=== PATIENT | male | born 1960 | race Caucasian/White ===

== ENCOUNTER 2018-08-11 10:31 | Emergency (ER) | payer OTHER ==
[~2018-08-11] VITALS: Ht 180.3 cm; Wt 109.3 kg
[~2018-08-11 10:31] MED LIST: ASPIRIN325 MG PO; CRESTOR10 MG
[2018-08-11] MEDS ORDERED: ONDANSETRON HCL INJ 2 MG/ML VIAL IV STA (10:53)
[2018-08-11] MEDS ORDERED: MORPHINE SULFATE INJ 10 MG/ML IV ONE (11:00)
[2018-08-11] MEDS ORDERED: SODIUM CHLORIDE 0.9% 1000ML 1,000 ML IV SCH (11:30)
--- NOTE | 2018-08-11 12:00 | NUR ---
Pt taken to Radiology for CT and X-Rays, VSS, No distress, AA&Ox3 Addendum: 08/11/18 at 1356 by MARIE Pt to Radiology for CT and X-Ray. Pt is in no distress, VSS, spinal precautions observed.
--- NOTE | 2018-08-11 12:14 | Diagnostic Imaging Report ---
CT MAX/FAC.PARANASAL SINUS WO HISTORY: Fall COMPARISON: None. TECHNIQUE: Axial CT images through the face were obtained without contrast. Coronal/sagittal reformations were created. One or more of the following dose reduction techniques were used: Automated exposure control, adjustment of the mA and/or kV according to patient size, and/or utilization of iterative reconstruction technique. Streak artifacts obscure some details. DISCUSSION: Mildly displaced bilateral nasal bone fractures are associated with local soft tissue edema. Anterior superior nasal septum fracture is also mildly displaced. No additional acute fracture is seen. There are mild degenerative changes in the upper cervical spine. The C2 and C3 vertebral bodies are fused. There are mild degenerative changes in the left temporomandibular joint. The orbits are intact. Intraorbital contents are grossly unremarkable. Moderate right maxillary sinus mucosal thickening is present. Mild bilateral ethmoid air cell mucosal thickening is also present. Bilateral palatine tonsilloliths are present. Otherwise, the visualized soft tissues and intracranial compartment are grossly unremarkable. IMPRESSION: 1. Mildly displaced bilateral nasal bone fractures. 2. Mildly displaced fracture of the anterior superior nasal septum. 3. No other acute osseous abnormalities. Signed by: Dr. Vitaly Barrientos M.D. on 08/11/2018 12:11 PM
--- NOTE | 2018-08-11 12:25 | Diagnostic Imaging Report ---
CT C-SPINE W/O - HOPD, CT THORACIS SPINE WO-HOPD, CT LUMBAR SPINE WITHOUT-HOPD HISTORY: Fall COMPARISON: None. TECHNIQUE: Axial CT images of the cervical, thoracic, and lumbar spine were obtained without contrast. Coronal/sagittal reformatted images were created. One or more of the following dose reduction techniques were used: Automated exposure control, adjustment of the mA and/or kV according to patient size, and/or utilization of iterative reconstruction technique. FINDINGS: Cervical lordosis is straightened. Thoracic kyphosis and lumbar lordosis are preserved. There is no significant scoliosis or subluxation. No fracture, compression deformity, or destructive osseous lesions are seen. No gross spinal canal mass is seen. The paravertebral and paraspinal soft tissues are unremarkable. Mild lower cervical spondylosis is most prominent at C6-C7. The C2 and C3 vertebral bodies are fused. Mild atlantoaxial arthrosis is present as well. Mild multilevel thoracic and lumbar spondylotic changes are also present. Mild bilateral facet arthrosis is seen at L4-L5 and L5-S1. There are also mild degenerative changes in the bilateral sacroiliac joints. Mild dependent atelectasis is seen in the lungs. IMPRESSION: 1. No acute osseous abnormalities. 2. Mild multilevel spondylotic changes. Signed by: Dr. Vitaly Barrientos M.D. on 08/11/2018 12:22 PM
--- NOTE | 2018-08-11 13:22 | Diagnostic Imaging Report ---
Exam: Right knee radiographs-3 views Comparison: None. Findings: Status post right total knee arthroplasty and patellar resurfacing with intact hardware. No evidence of periprosthetic lucency. No evidence of acute fracture, malalignment, or joint effusion. Impression: Status post right total knee arthroplasty with intact hardware and anatomic alignment. Signed by: Dr. Tiarra Banegas MD on 08/11/2018 1:19 PM
--- NOTE | 2018-08-11 13:33 | Diagnostic Imaging Report ---
EXAM: CT Abdomen and Pelvis WITH contrast INDICATION: Trauma. COMPARISON: None. TECHNIQUE: mAbdomen and pelvis were scanned utilizing a multidetector helical scanner from the lung base to the pubic symphysis after administration of IV contrast. Coronal and sagittal reformations were obtained. Routine protocol was performed. Scan was performed when during portal venous phase. IV CONTRAST: 100 mL of Isovue 370 ORAL CONTRAST: Water COMPLICATIONS: None RADIATION DOSE: Total DLP: 800 mGy*cm CTDIvol has been reviewed. It is below the limits set by the Radiation Protocol Committee (RPC). FINDINGS: LINES and TUBES: None. LOWER THORAX: Unremarkable HEPATOBILIARY: No evidence of focal lesion. No biliary ductal dilation. GALLBLADDER: No radio-opaque stones or sludge. No wall thickening. SPLEEN: No splenomegaly. PANCREAS: No focal masses or ductal dilatation. ADRENALS: No adrenal nodules KIDNEYS/URETERS: Kidneys enhance symmetrically. No evidence of hydronephrosis, solid mass, or stone. Subcentimeter left renal hypodensities too small to characterize, but likely represents a cyst. GI TRACT: No evidence of wall thickening or distension. PELVIC ORGANS/BLADDER: Unremarkable. LYMPH NODES: No lymphadenopathy. VESSELS: Unremarkable. PERITONEUM / RETROPERITONEUM: No free air or fluid. BONES AND SOFT TISSUES: No acute osseous findings. CONCLUSION: No acute traumatic abnormality in the abdomen or pelvis. Signed by: Dr. Tiarra Banegas MD on 08/11/2018 1:30 PM
--- NOTE | 2018-08-11 14:50 | Diagnostic Imaging Report ---
Exam: Right Hand Series- 2 views, ring finger radiographs-3 views Comparison: <None.> Findings: 3 views of the hand. There is normal bone mineralization. No evidence of fracture or malalignment. The joint spaces are preserved. Dedicated radiographs of the ring finger demonstrate no evidence of fracture. Mild soft tissue edema in the proximal ring finger. Impression: No acute osseous abnormality in the right hand or ring finger. Mild soft tissue edema in the proximal ring finger. Signed by: Dr. Tiarra Banegas MD on 08/11/2018 2:47 PM
[2018-08-11 16:22] VITALS: BP 144/93
== END 2018-08-11 16:28 | disposition home or self-care (01) ==
LOC: FSED 10:31
DX: S00.81XA Abrasion of other part of head, initial encounter (principal); S02.2XXA Fracture of nasal bones, initial encounter for closed fracture; M54.2 Cervicalgia; S83.411A Sprain of medial collateral ligament of right knee, initial encounter; S83.421A Sprain of lateral collateral ligament of right knee, initial encounter; W18.09XA Striking against other object with subsequent fall, initial encounter; Y99.0 Civilian activity done for income or pay
CPT/HCPCS: 70486; 72125; 72128; 72131; 73120; 73140; 73562; 74177; 80053; 85025; 99284; J2270; J2405

== ENCOUNTER 2020-06-28 20:40 | Emergency (ER) | payer OTHER ==
[~2020-06-28] VITALS: Ht 180.3 cm; Wt 95.3 kg
[2020-06-28] MEDS ORDERED: TETANUS/DIPHTHERIA TOX ADULT 0.5 ML SYR ONE (20:57)
--- OUTSIDE RECORDS SUMMARY | 2020-06-28 20:57 | XMS REPORT | Continuity of Care Document ---
Author Author [facility] t Organization [facility] Address [address] [place] [address] Phone Unavailable Care Team Providers Care Computer Systems Engineer Name Role Phone NO, PCP PCP Unavailable Irvin NÚÑEZ Attphys Unavailable Payers Payer Name Policy Type Policy Number Effective Date Expiration Date [employer] [facility] [id number] [facility] [place] [id number] [facility] [id number] [facility] Problems This patient has no known problems. Allergies, Adverse Reactions, Alerts Allergy Name Allergy Type Status Severity Reaction(s) Onset Date Inacti ve Date Treating Clinician Comments Source No Known Allergies DA Active U 2018-10-25 00:00:00 [facility] Medications Ordered Medication Name Filled Medication Name Start Date Stop Da te Current Medication? Ordering Clinician Indication Dosage Frequency Signature (SIG) Comments Components Source Aspirin 325 Mg Tablet Aspirin 325 Mg Tablet 2016-09-17 00:00:00 Yes Wilber Segal 325 Twice A Day [facility] Rosuvastatin Calcium (Crestor) 10 Mg Tab Rosuvastatin Calcium (Crestor) 10 Mg Tab Yes Daily [facility] Procedures This patient has no known procedures. Encounters Start Date/Time End Date/Time Encounter Type Admission Type Attendi [facility] Care Department Encounter ID Source 2018-08-11 10:31:00 2018-08-11 16:28:00 Departed Emergency Room 1 USMAN NÚÑEZ [facility] [id number] [facility] Results Test Description Test Time Test Comments Results Result Comments Source URINALYSIS COMPLETE 2018-10-25 18:52:00 Test Item UA COLOR (test code = COLU) STRAW YELLOW UA APPEARANCE (test code = APPU) CLEAR CLEAR UA GLUCOSE DIPSTICK (test code = DGLUU) NEGATIVE mg/dL NEGATIVE UA BILIRUBIN DIPSTICK (test code = BILU) NEGATIVE mg/dL NEGATIVE UA KETONE DIPSTICK (test code = KETU) Negative mg/dL NEGATIVE UA SPECIFIC GRAVITY (test code = SGU) 1.048 1.001-1.035 UA BLOOD DIPSTICK (test code = EDUIN) Negative NEGATIVE UA PH DIPSTICK (test code = STANISLAV) 6.0 5.0-8.0 UA PROTEIN DIPSTICK (test code = PROU) Negative mg/dL NEGATIVE UA UROBILINIOGEN DIPSTICK (test code = URO) 0.2E.U./dL mg/dL 0.0-0. 2 UA NITRITE DIPSTICK (test code = JAZZ) NEGATIVE NEGATIVE UA LEUKOCYTE ESTERASE W REFLEX (test code = LEUUR) NEGATIVE NEG ATIVE UA WBC (test code = WBCU) 0-5 #/HPF 0-5 UA RBC (test code = RBCU) 0-2 #/HPF 0-5 UA EPITHELIAL CELLS (test code = EPIU) FEW per HPF FEW UA BACTERIA (test code = BACU) NONE SEEN #/HPF NONE UA MUCUS (test code = MUCU) FEW #/LPF FEW Urine Source? Clean CatchURINALYSIS [id number] 18:49:00* Test Item Value Reference Range Interpretation Comments UA COLOR (test code = COLU) STRAW YELLOW UA APPEARANCE (test code = APPU) CLEAR CLEAR UA GLUCOSE DIPSTICK (test code = DGLUU) NEGATIVE mg/dL NEGATIVE UA BILIRUBIN DIPSTICK (test code = BILU) NEGATIVE mg/dL NEGATIVE UA KETONE DIPSTICK (test code = KETU) Negative mg/dL NEGATIVE UA SPECIFIC GRAVITY (test code = SGU) 1.048 1.001-1.035 UA BLOOD DIPSTICK (test code = EDUIN) Negative NEGATIVE UA PH DIPSTICK (test code = STANISLAV) 6.0 5.0-8.0 UA PROTEIN DIPSTICK (test code = PROU) Negative mg/dL NEGATIVE UA UROBILINIOGEN DIPSTICK (test code = URO) 0.2E.U./dL mg/dL 0.0-0. 2 UA NITRITE DIPSTICK (test code = JAZZ) NEGATIVE NEGATIVE UA LEUKOCYTE ESTERASE W REFLEX (test code = LEUUR) NEGATIVE NEG ATIVE UA WBC (test code = WBCU) per HPF 0-5 Urine Source? Clean CatchBASIC METABOLIC [id number] 18:02:00* Test Item Value Reference Range Interpretation Comments SODIUM (test code = NA) 136 mmol/L 136-145 N POTASSIUM (test code = K) 3.6 mmol/L 3.5-5.1 N CHLORIDE (test code = CL) 104.0 mmol/L 98-107 N CARBON DIOXIDE (test code = CO2) 20.0 mmol/L 21-32 L ANION GAP (test code = GAP) 15.6 10-20 N GLUCOSE (test code = GLU) 89 mg/dL 74-106 N BLOOD UREA NITROGEN (test code = BUN) 17 mg/dL 7-18 N GLOMERULAR FILTRATION RATE (test code = GFR) > 60 mL/min >=60 Estimated GFR by using Modified MDRD formula.Chronic kidney disease is defined as either kidney damageor GFR <60 mL/min/1.73 m2 for >3 months. CREATININE (test code = CREAT) 0.80 mg/dL 0.7-1.3 N BUN/CREATININE RATIO (test code = BUN/CREA) 20.2 10-20 H CALCIUM (test code = CA) 7.9 mg/dL 8.5-10.1 L HEPATIC FUNCTION [id number] 18:02:00* Test Item Value Reference Range Interpretation Comments TOTAL PROTEIN (test code = PROT) 6.5 gram/dL 6.4-8.2 N ALBUMIN (test code = ALB) 3.6 g/dL 3.4-5.0 N GLOBULIN (test code = GLOB) 2.9 gram/dL 2.7-4.2 N ALBUMIN/GLOBULIN RATIO (test code = A/G) 1.2 0.75-1.50 N BILIRUBIN TOTAL (test code = BILT) 0.40 mg/dL 0.0-1.0 N BILIRUBIN DIRECT (test code = BILD) 0.10 mg/dL 0.0-0.20 N SGOT/AST (test code = AST) 21 IUnit/L 15-37 N SGPT/ALT (test code = ALT) 30 IUnit/L 12-78 N ALKALINE PHOSPHATASE TOTAL (test code = ALKP) 40 IUnit/L 45-117 L Note change in reference range due to change in reagent. [id number] 18:02:00* Test Item Value Reference Range Interpretation Comments TROPONIN-I (test code = TROPI) <0.015 ng/mL 0-0.045 N BASIC METABOLIC [id number] 17:51:00* Test Item Value Reference Range Interpretation Comments SODIUM (test code = NA) 136 mmol/L 136-145 N POTASSIUM (test code = K) 3.6 mmol/L 3.5-5.1 N CHLORIDE (test code = CL) 104.0 mmol/L 98-107 N CARBON DIOXIDE (test code = CO2) mmol/L 21-32 ANION GAP (test code = GAP) 10-20 GLUCOSE (test code = GLU) mg/dL 74-106 BLOOD UREA NITROGEN (test code = BUN) mg/dL 7-18 GLOMERULAR FILTRATION RATE (test code = GFR) mL/min >=60 CREATININE (test code = CREAT) mg/dL 0.7-1.3 BUN/CREATININE RATIO (test code = BUN/CREA) 10-20 CALCIUM (test code = CA) mg/dL 8.5-10.1 HEPATIC FUNCTION [id number] 17:51:00* Test Item Value Reference Range Interpretation Comments TOTAL PROTEIN (test code = PROT) gram/dL 6.4-8.2 ALBUMIN (test code = ALB) g/dL 3.4-5.0 GLOBULIN (test code = GLOB) gram/dL 2.7-4.2 ALBUMIN/GLOBULIN RATIO (test code = A/G) 0.75-1.50 BILIRUBIN TOTAL (test code = BILT) mg/dL 0.0-1.0 BILIRUBIN DIRECT (test code = BILD) mg/dL 0.0-0.20 SGOT/AST (test code = AST) IUnit/L 15-37 SGPT/ALT (test code = ALT) IUnit/L 12-78 ALKALINE PHOSPHATASE TOTAL (test code = ALKP) IUnit/L 45-117 [id number] 17:51:00* Test Item Value Reference Range Interpretation Comments TROPONIN-I (test code = TROPI) ng/mL 0-0.045 CBC W/O [id number] 17:18:00* Test Item Value Reference Range Interpretation Comments WHITE BLOOD CELL (test code = WBC) 5.7 K/mm3 4.5-12.5 N RED BLOOD CELL (test code = RBC) 4.63 mill/mm3 4.0-5.8 N HEMOGLOBIN (test code = HGB) 12.8 gram/dL 13.0-17.5 L HEMATOCRIT (test code = HCT) 39.7 % 42.0-52.0 L MEAN CELL VOLUME (test code = MCV) 85.7 fL 80-98 N MEAN CELL HGB (test code = MCH) 27.6 picogram 27.0-33.0 N MEAN CELL HGB CONCETRATION (test code = MCHC) 32.2 gram/dL 33.0-36. 0 L RED CELL DISTRIBUTION WIDTH (test code = RDW) 13.3 % 11.6-16. 2 N PLATELET COUNT (test code = PLT) 186 K/mm3 150-450 N MEAN PLATELET VOLUME (test code = MPV) 10.4 fL 6.7-11.0 N - CT ABD PELVIS [id number] 17:07:00 Name: TYSON HA [facility] : 1960 Age/S: 58 / M [address] [facility] Unit #: [id number] Loc: [place] [address] Phys: Catracho Mireles DO Acct: [id number] Dis Date: Status: REG ER PHONE #: [phone] Exam Date: 10/25/2018 1631 FAX #: [phone] Reason: trauma EXAMS: CPT CODE: [id number] CT ABD PELVIS W/CONT [id number] REASON FOR EXAM: trauma EXAM ORDER DATE: 10/25/2018 4:07 PM Ordering Jose Francisco: Catracho Mireles DO PROCEDURE: - CT ABD PELVIS W/CONT COMPARISON: FINDINGS: CT images of the abdomen and pelvis were obtained with IV and without oral contrast at 5mm. Dose modulation, iterative reconstruction, and/or weight based adjustment of the MA/KV was utilized to reduce the radiation dose to as low as reasonably achievable. Intravenous contrast: 100c of Omnipaque 370. The liver, spleen, pancreas are grossly within normal limits. The gallbladder is unremarkable by CT. The kidneys are within normal limits. The urinary bladder is unremarkable. The colon, small bowel, and stomach are within normal limits without evidence of obstruction. The appendix is unremarkable. No evidence of free air or free fluid. The uterus is unremarkable. IMPRESSION: No acute findings in the abdomen at 1707 Reported and signed by: Eamon Mendoza M.D. CC: Catracho Mireles DO Technologist:Jena May RT(R),CT CTDI: DLP: Trnscb Date/Time: 10/25/2018 (1707) Perfecto.VTL Orig Print D/T: S: 10/25/2018 (1700) CTDI: DLP: PAGE 1 Signed Report - CT CHEST W/CONTRAST 2018-10-25 17:05:00 Name: TYSON HA [facility] : 1960 Age/S: 58 / M [address] [facility] Unit #: [id number] Loc: [place] [address] Phys: Catracho Mireles DO Acct: [id number] Dis Date: Status: REG ER PHONE #: [phone] Exam Date: 10/25/2018 1631 FAX #: [phone] Reason: trauma EXAMS: CPT CODE: [id number] CT CHEST W/CONTRAST 83681 REASON FOR EXAM: trauma EXAM ORDER DATE: 10/25/2018 4:07 PM Ordering Jose Francisco: Catracho Mireles DO PROCEDURE: - CT CHEST W/CONTRAST FINDINGS: CT images of the chest were obtained with IV contrast. Reconstructed sagittal and coronal images of the chest were provided for interpretation. Dose modulation, iterative reconstruction, and/or weight based adjustment of the MA/KV was utilized to reduce the radiation dose to as low as reasonably achievable. Intravenous contrast: 100c of Omnipaque 370. The heart size is within normal limits. No evidence of pericardial effusion The thoracic aorta is unremarkable. No evidence of dissection or aneurysmal dilatation. No filling defect seen within the main or lobar pulmonary arteries to suggest pulmonary embolus. No evidence of mediastinal or hilar adenopathy. The lungs are clear. No evidence of pleural effusion IMPRESSION: No acute findings in the chest. at 1705 Reported and signed by: Eamon Mendoza M.D. CC: Catracho Mireles DO Technologist:Jena May RT(R),CT CTDI: DLP: Trnscb Date/Time: 10/25/2018 (2458) Perfecto.VTL Orig Print D/T: S: 10/25/2018 (3887) CTDI: DLP: PAGE 1 Signed Report - XR CHEST 1 [id number] 16:30:00 FAX: Catracho Mireles DO [place]: B St: REG Name: TYSON OLSON [facility] : [birth year] Age/S: 58/M [address] [facility] Unit #: [id number] Loc: [place] [address] Phys: Catracho Mireles DO Acct: [id number] Dis Date: Status: REG ER PHONE #: [phone] Exam Date: 10/25/2018 1614 FAX #: [phone] Reason: CHEST PAIN EXAMS: CPT CODE: [id number] XR CHEST 1 V [id number] REASON FOR EXAM: CHEST PAIN EXAM ORDER DATE: 10/25/2018 4:07 PM Ordering Jose Francisco: Catracho Mireles DO PROCEDURE: - XR CHEST 1 V COMPARISON: FINDINGS: Portable AP frontal view of the chest obtained at 4:16 PM shows clear lungs without evidence of consolidation. There is no evidence of effusion. The heart size is within normal limits. Pulmonary vasculatures are unremarkable. IMPRESSION: No active disease. at 1630 Reported and signed by: Eamon Mendoza M.D. CC: Catracho Mireles DO Technologist: Gaurav SOTO(R) Trnscrd Date/Time/By: 10/25/2018 (0460) : By: GilbertoL Orig Print D/T: S: 10/25/2018 (5873) PAGE 1 Signed Report FINGER RT - [id number] 14:43:00 [place] [address] Patient Name: TYSON HA MR #: [id number] : 1960 Age/Sex: 58/M Req #: [id number] Adm Physician: Ordered by: USMAN NÚÑEZ MD Report #: [id number] Location: [facility] Room/Bed: Procedure: [id number] HOPD/FINGER RT - HOPD Exam Date: 08/11/18 Exam Time: 1444 REPORT STATUS: Signed E xam: Right Hand Series- 2 views, ring finger radiographs-3 views Comparis on: <None.> Findings: 3 views of the hand. There is normal bone mineralization. No evidence of fracture or malalignment. The joint spaces are preserved. Dedicated radiographs of the ring finger demonstrate no evidence of fracture. Mild soft tissue edema in the proximal ring finger. Impression: No acute osseous abnormality in the right hand or ring finger. Mild soft tissue edema in the proximal ring finger. Signed by: Dr. Umair Roberson MD on 08/11/2018 2:47 PM Dictated By: UMAIR ROBERSON MD 46 Transcribed By: DOMINIQUE on 08/11/181446 COPY TO: USMAN NÚÑEZ MD HAND 2 VIEW RT - HOPD 2018-08-11 14:43:00 [place] [address] Patient Name: TYSON HA MR #: [id number] : 1960 Age/Sex: 58/M Req #: [id number] Adm Physician: Ordered by: USMAN NÚÑEZ MD Report #: [id number] Location: [facility] Room/Bed: Procedure: [id number] HOPD/HAND 2 VIEW RT - HOPD Exam Date: 08/11/18 Exam Time: 1445 REPORT STATUS: Signed Exam: Right Hand Series- 2 views, ring finger radiographs-3 views Com parison: <None.> Findings: 3 views of the hand. There is normal bone mineralization. No evidence of fracture or malalignment. The joint spaces are preserved. Dedicated radiographs of the ring finger demonstrate no evidence of fracture. Mild soft tissue edema in the proximal ring finger. Impression: No acute osseous abnormality in the right hand or ring finger. Mild soft tissue edema in the proximal ring finger. Signed by: Dr. Umair Roberson MD on 08/11/2018 2:47 PM Dictated By: UMAIR ROBERSON MD 46 Transcribed By: DOMINIQUE on 08/11/181446 COPY TO: USMAN NÚÑEZ MD CT ABD/PEL WITH CONTRAST-HOPD 2018-08-11 13:25:00 [place] [address] Patient Name: TYSON HA MR #: [id number] : 1960 Age/Sex: 58/M Req #: [id number] Adm Physician: Ordered by: USMAN NÚÑEZ MD Report #: [id number] Location: [facility] Room/Bed: Procedure: [id number] HOPD/CT ABD/PEL WITH CONTRAST-HOPD Exam Date: 08/11/18 Exam Time: 1225 REPORT STATUS: S igned EXAM: CT Abdomen and Pelvis WITH contrast INDICATION: Trauma. COMPARISON: None. TECHNIQUE: mAbdomen and pelvis were scanned utilizing a m [employer] helical scanner from the lung base to the pubic symphysis after a dministration of IV contrast. Coronal and sagittal reformations were obtained. Routine protocol was performed. Scan was performed when during portal venous phase. IV CONTRAST: 100 mL of Isovue 370 ORAL CONTRAST: Water COMPLICATIONS: None RADIATION DOSE: Total DLP: 800 mGy*cm CTDIvol has been reviewed. It is below the limits set by the [facility] Protocol Committee (RPC). FINDINGS: LINES and TUBES: None. L OWER THORAX: Unremarkable HEPATOBILIARY: No evidence of focal lesion. No b iliary ductal dilation. GALLBLADDER: No radio-opaque stones or sludge. No wall thickening. SPLEEN: No splenomegaly. PANCREAS: No focal masses or ductal dilatation. ADRENALS: No adrenal nodules KIDNEYS/URETERS: Kidneys enhance symmetrically. No evidence of hydronephrosis, solid mass, or stone. Subcentimeter left renal hypodensities too small to characterize, but l ikely represents a cyst. GI TRACT: No evidence of wall thickening or disten arnol. PELVIC ORGANS/BLADDER: Unremarkable. LYMPH NODES: No lymphadeno rocio. VESSELS: Unremarkable. PERITONEUM / RETROPERITONEUM: No free ai r or fluid. BONES AND SOFT TISSUES: No acute osseous findings. CONCLUS ION: No acute traumatic abnormality in the abdomen or pelvis. Signed by: Dr. Umair Roberson MD on 08/11/2018 1:30 PM Dictated By: UMAIR ROBERSON MD Electr onically Signed By: UMAIR ROBERSON MD on 08/11/181329 Transcribed By: DOMINIQUE on 08/11/181329 COPY TO: USMAN NÚÑEZ MD KNEE 3VW RT - HOPD 2018-08-11 13:17:00 [place] [address] Patient Name: TYSON HA MR #: [id number] : 1960 Age/Sex: 58/M Req #: [id number] Adm Physician: Ordered by: USMAN NÚÑEZ MD Report #: [id number] Location: [facility] Room/Bed: Procedure: [id number] HOPD/KNEE 3VW RT - HOPD Exam Date: 08/11/18 Exam Pardeep e: 1235 REPORT STATUS: Signed Exam: Right knee radiographs-3 views Comparison: None. Findings: Status post right total knee arthroplasty and patellar resurfacing with intact hardware. No evidence of periprosthetic lucency. No evidence of acute fracture, malalignment, or joint effusion. Impression: Status post right total knee arthroplasty with intact hardware and anatomic alignment. Signed by: Dr. Umair Roberson MD on 08/11/2018 1:19 PM Dictated By: UMAIR ROBERSON MD Elect ronically Signed By: UMAIR ROBERSON MD on 08/11/181318 Transcribed By: DOMINIQUE on 08/11/181318 COPY TO: USMAN NÚÑEZ MD CT LUMBAR SPINE [id number] 12:11:00 [place] [id number] [place] [address] Patient Name: TYSON HA MR #: [id number] : 1960 Age/Sex: 58/M Req #: [id number] Adm Physician: Ordered by: USMAN NÚÑEZ MD Report #: [id number] Location: ED Room/Bed: Procedure: [id number] HOPD/CT LUMBAR SPINE WITHOUT-HOPD Exam Date: 08/11/18 Exam Time: 1158 REPORT STATUS: Si gned CT C-SPINE W/O - HOPD, CT THORACIS SPINE WO-HOPD, CT LUMBAR SPINE WITHOU T-HOPD HISTORY: Fall COMPARISON: None. TECHNIQUE: Axial CT images of the cervical, thoracic, and lumbar spine were obtained without contr ast. Coronal/sagittal reformatted images were created. One or more of the foll owing dose reduction techniques were used: Automated exposure control, adjustm ent of the mA and/or kV according to patient size, and/or utilization of itera tive reconstruction technique. FINDINGS: Cervical lordosis is str aightened. Thoracic kyphosis and lumbar lordosis are preserved. There is no significant scoliosis or subluxation. No fracture, compression deformity, or destructive osseous lesions are seen. No gross spinal canal mass is seen. The paravertebral and paraspinal soft tissues are unremarkable. Mild lower cervical spondylosis is most prominent at C6-C7. The C2 and C3 vertebral bod ies are fused. Mild atlantoaxial arthrosis is present as well. Mild multile karrie thoracic and lumbar spondylotic changes are also present. Mild bilateral f acet arthrosis is seen at L4-L5 and L5-S1. There are also mild degenerative ch anges in the bilateral sacroiliac joints. Mild dependent atelectasis is see n in the lungs. IMPRESSION: 1. No acute osseous abnormalities. 2. Mild multilevel spondylotic changes. Signed by: Dr. iVtaly Barrientos M.D. on 08/11/2018 12:22 PM Dictated By: VITALY BARRIENTOS MD Electronically Sig santiago By: VITALY BARRIENTOS MD on 08/11/18 1222 Transcribed By: DOMINIQUE on 9 1222 COPY TO: USMAN NÚÑEZ MD CT THORACIS SPINE WO-HOPD 2018-08-11 12:11:00 [place] [address] Patient Name: TYSON HA MR #: [id number] : 1960 Age/Sex: 58/M Req #: [id number] Adm Physician: Ordered by: USMAN NÚÑEZ MD Report #: [id number] Location: [facility] Room/Bed: Procedure: [id number] HOPD/CT THORACIS SPINE WO-HOPD Exam Date: 08/11/18 E xam Time: 1158 REPORT STATUS: Bisi d CT C-SPINE W/O - HOPD, CT THORACIS SPINE WO-HOPD, CT LUMBAR SPINE WITHOUT-H OPD HISTORY: Fall COMPARISON: None. TECHNIQUE: Axial CT catia ges of the cervical, thoracic, and lumbar spine were obtained without contrast . Coronal/sagittal reformatted images were created. One or more of the followi ng dose reduction techniques were used: Automated exposure control, adjustment of the mA and/or kV according to patient size, and/or utilization of iterative reconstruction technique. FINDINGS: Cervical lordosis is straig htened. Thoracic kyphosis and lumbar lordosis are preserved. There is no si gnificant scoliosis or subluxation. No fracture, compression deformity, or de structive osseous lesions are seen. No gross spinal canal mass is seen. Th e paravertebral and paraspinal soft tissues are unremarkable. Mild lower c ervical spondylosis is most prominent at C6-C7. The C2 and C3 vertebral bodies are fused. Mild atlantoaxial arthrosis is present as well. Mild multilevel thoracic and lumbar spondylotic changes are also present. Mild bilateral facet arthrosis is seen at L4-L5 and L5-S1. There are also mild degenerative changes in the bilateral sacroiliac joints. Mild dependent atelectasis is seen in the lungs. IMPRESSION: 1. No acute osseous abnormalities. 2. M ild multilevel spondylotic changes. Signed by: Dr. Vitaly Barrientos M.D. on 08/11/2018 12:22 PM Dictated By: VITALY BARRIENTOS MD 1222 Transcribed By: DOMINIQUE on 08/11/18 1 222 COPY TO: USMAN NÚÑEZ MD CT C-SPINE W/O - [id number] 12:11:00 [place] [address] Patient Name: TYSON HA MR #: [id number] : 1960 Age/Sex: 58/M Req #: [id number] Adm Physician: Ordered by: USMAN NÚÑEZ MD Report #: [id number] Location: [facility] Room/Bed: Procedure: [id number] HOPD/CT C-SPINE W/O - HOPD Exam Date: 08/11/18 Exam Time: 1123 REPORT STATUS: Signed CT C-SPINE W/O - HOPD, CT THORACIS SPINE WO-HOPD, CT LUMBAR SPINE WITHOUT-HOPD HISTORY: Fall COMPARISON: None. TECHNIQUE: Axial CT images of the cervical, thoracic, and lumbar spine were obtained without contrast. Co keith/sagittal reformatted images were created. One or more of the following d ose reduction techniques were used: Automated exposure control, adjustment of the mA and/or kV according to patient size, and/or utilization of iterative re construction technique. FINDINGS: Cervical lordosis is straighten ed. Thoracic kyphosis and lumbar lordosis are preserved. There is no signif icant scoliosis or subluxation. No fracture, compression deformity, or destru ctive osseous lesions are seen. No gross spinal canal mass is seen. The pa ravertebral and paraspinal soft tissues are unremarkable. Mild lower cervi jenny spondylosis is most prominent at C6-C7. The C2 and C3 vertebral bodies are fused. Mild atlantoaxial arthrosis is present as well. Mild multilevel tho racic and lumbar spondylotic changes are also present. Mild bilateral facet ar throsis is seen at L4-L5 and L5-S1. There are also mild degenerative changes i n the bilateral sacroiliac joints. Mild dependent atelectasis is seen in th e lungs. IMPRESSION: 1. No acute osseous abnormalities. 2. Mild multilevel spondylotic changes. Signed by: Dr. Vitaly Barrientos M.D. on 2018 12:22 PM Dictated By: VITALY BARRIENTOS MD 1222 Transcribed By: DOMINIQUE on 08/11/18 1222 COPY TO: USMAN NÚÑEZ MD CT MAX/FAC.PARANASAL SINUS WO 2018-08-11 12:04:00 [place] [address] Patient Name: TYSON HA MR #: [id number] : 1960 Age/Sex: 58/M Req #: [id number] Adm Physician: Ordered by: USMAN NÚÑEZ MD Report #: [id number] Location: [facility] Room/Bed: Procedure: [id number] HOPD/CT MAX/FAC.PARANASAL SINUS WO Exam Date: 08/11/18 Exam Time: 1145 REPORT STATUS: S igned CT MAX/FAC.PARANASAL SINUS WO HISTORY: Fall COMPARISON: None . TECHNIQUE: Axial CT images through the face were obtained without contr ast. Coronal/sagittal reformations were created. One or more of the following dose reduction techniques were used: Automated exposure control, adjustment of the mA and/or kV according to patient size, and/or utilization of iterative reconstruction technique. Streak artifacts obscure some details. DISCUSSI ON: Mildly displaced bilateral nasal bone fractures are associated with local soft tissue edema. Anterior superior nasal septum fracture is also mildly disp laced. No additional acute fracture is seen. There are mild degenerative ch anges in the upper cervical spine. The C2 and C3 vertebral bodies are fused. T here are mild degenerative changes in the left temporomandibular joint. T he orbits are intact. Intraorbital contents are grossly unremarkable. Moder ate right maxillary sinus mucosal thickening is present. Mild bilateral ethmoi d air cell mucosal thickening is also present. Bilateral palatine tonsillol iths are present. Otherwise, the visualized soft tissues and intracranial comp artment are grossly unremarkable. IMPRESSION: 1. Mildly displaced bilate ral nasal bone fractures. 2. Mildly displaced fracture of the anterior superi or nasal septum. 3. No other acute osseous abnormalities. Signed by: Dr. Vitaly Barrientos M.D. on 08/11/2018 12:11 PM Dictated By: VITALY BARRIENTOS MD 1211 Transcribed By: DOMINIQUE on 08/11/18 1211 COPY TO: USMAN NÚÑEZ MD
[2020-06-28] MEDS ORDERED: LIDOCAINE HCL 1% LOCAL INJ 20 ML VIAL ONE (21:05)
--- NOTE | 2020-06-28 21:05 | Emergency Department Note ---
History of Present Illnes History of Present Illness Chief Complaint: Laceration History of Present Illness This is a 59 year old male Chief Complaint Comment PT C/O SUPERFICIAL LACERATION TO LEFT THUMB, EDGES APPROXIMATED COMPLETELY, PT STATES ONLY CAME IN [place] PAIN WAS ALMOST UNBEARABLE, PT WAS MOVING A STAINLESS STEEL SINK INTO PLACE WITH AN EDGE ON SINK SLICED HIS FINGE IT WAS PUT INTO PLACE, BLEEDING CONTROLLED WHEN MINIMAL PRESSURE APPLIED . Historian: Patient Onset (how long ago): hour(s) (2) Location: left thumb Quality: laceration Radiation: Denies non-radiation, Denies back, Denies neck, Denies extremity, Denies abdomen, Denies periumbilical, Denies flank, Denies proximal, Denies distal, Denies other Severity: mild Onset quality: sudden Duration (how long): hour(s) (2) Timing of current episode: constant Progression: unchanged Chronicity: new Context: Denies recent illness, Denies recent surgery, Denies recent i mmobilization, Denies recent travel, Denies trauma/injury, Denies new medications, Denies hx of DVT/PE, Denies non-compliance w/ medications, Denies other Relieving factors: none Exacerbating factors: none Associated symptoms: Denies denies other symptoms, Denies confusion, Denies chest pain, Denies cough, Denies diaphoresis, Denies fever/chills, Denies headaches, Denies loss of appetite, Denies malaise, Denies nausea/vomiting, Denies rash, Denies seizure, Denies shortness of breath, Denies syncope, Denies weakness, Denies other Treatments prior to arrival: none Past Medical/Family History Physician Review I have reviewed the patient's past medical and family history. Any updates have been documented here. Past Medical History Past Medical History: None, Hyperlipedemia Other Medical History: takes meds for chepe cholesterol Past Surgical History: None Other Surgery: R TKA in 2018 Social History Smoking Cessation: Never Smoker Alcohol Use: Occasional Other Last Tetanus: UTD- 2018 Review of Systems Review of Systems Constitutional: Reports no symptoms EENTM: Reports no symptoms; Denies as per HPI, Denies eye pain, Denies blurred vision, Denies tearing, Denies double vision, Denies ear pain, Denies ear discharge, Denies nose pain, Denies nose congestion, Denies throat pain, Denies throat swelling, Denies mouth pain, Denies mouth swelling, Denies other Cardiovascular: Reports no symptoms; Denies as per HPI, Denies chest pain, Denies edema, Denies palpitations, Denies syncope, Denies other Respiratory: Reports no symptoms Gastrointestinal: Reports no symptoms; Denies as per HPI, Denies abdominal pain, Denies constipation, Denies diarrhea, Denies nausea, Denies vomiting, Denies other Genitourinary: Reports no symptoms; Denies as per HPI, Denies discharge, Denies dysuria, Denies frequency, Denies hematuria, Denies pain, Denies other Musculoskeletal: Reports no symptoms Integumentary: Reports as per HPI Neurological: Reports no symptoms; Denies as per HPI, Denies headache, Denies numbness, Denies paresthesia, Denies pre-existing deficit, Denies seizure, Denies tingling, Denies tremors, Denies weakness, Denies other Psychological: Reports no symptoms; Denies as per HPI, Denies anxiety, Denies depressed, Denies emotional problems, Denies other Endocrine: Reports no symptoms Hematological/Lymphatic: Reports no symptoms Physical Exam Related Data Allergies: Coded Allergies: No Known Allergies (Unverified , 09/16/16) Vital signs reviewed: Yes Physical Exam CONSTITUTIONAL Constitutional: Present well-developed, Present well-nourished HENT HENT: Present normocephalic, Present atraumatic, Present oropharynx clear/moist, Present nose normal HENT L/R: Present left ext ear normal, Present right ext ear normal; Absent left TM normal, Absent right TM normal, Absent left canal normal, Absent right canal normal, Absent left impacted cerumen, Absent right impacted cerumen, Absent left bulging TM, Absent right bulging TM, Absent other EYES Eyes: Reports PERRL, Reports conjunctivae normal; Denies EOM normal, Denies lids normal, Denies left eye discharge, Denies right eye discharge, Denies scleral icterus, Denies other NECK Neck: Present ROM normal; Absent supple, Absent thyromegaly, Absent tracheal deviation, Absent stridor, Absent JVD, Absent cervical adenopathy, Absent carotid bruit, Absent other PULMONARY Pulmonary: Present effort normal, Present breath sounds normal; Absent respiratory distress, Absent rales, Absent rhonchi, Absent chest tenderness, Absent other CARDIOVASCULAR Cardiovascular: Present regular rhythm, Present heart sounds normal, Present capillary refill normal, Present normal rate; Absent irregular rhythm, Absent intact distal pulses, Absent tachycardia, Absent bradycardia, Absent murmur, Absent gallop, Absent friction rub, Absent palpable pulses, Absent strong pulses, Absent weak pulses, Absent LLE edema, Ab sent RLE edema, Absent other GASTROINTESTINAL Abdominal: Present soft, Present nontender, Present bowel sounds normal GENITOURINARY Genitourinary: Present exam deferred SKIN Skin: Present warm, Present dry, Present other (laceration) MUSCULOSKELETAL Musculoskeletal: Present ROM normal NEUROLOGICAL Neurological: Present alert, Present oriented x 3, Present no gross motor or sensory deficits PSYCHOLOGICAL Psychological: Present mood/affect normal, Present judgement normal Procedures Laceration Site: upper extremity Side: left Size (cm): 3 Description: linear Depth: simple, single layer Local anesthesia: lidocaine 1% Amount of anesthesia (mL): 5 Size (cm): 4-0 Number of sutures: 3 Assessment & Plan Medical Decision Making MDM laceration conntsion Reassessment Reassessment time: 21:04 Reassessment better Assessment & Plan Final Impression: (1) Laceration of left thumb (2) Acute pain due to trauma Depart Disposition: HOME, SELF-halfway Meds Active Scripts Aspirin (ASPIRIN) 325 Mg Tablet, 325 MG PO BID for 21 Days Prov:KIMBERLY ANTONIO 09/17/16 Reported Medications Rosuvastatin Calcium (CRESTOR) 10 Mg Tab, DAILY THERAPEUTICALLY SUBSTITUTED WITH SIMVASTATIN 40MG 09/13/16 Medications in the ED Tetanus/ Diphtheria Toxoids 0.5 ml [facility]-MED ONCE .ROUTE ; Start 06/28/20 at 20:57; Stop 06/28/20 at 20:53; Status DC Lidocaine HCl 20 ml [facility]-MED ONCE .ROUTE ; Start 06/28/20 at 21:05; Stop 06/28/20 at 20:58; Status DC TIANNA SHERWOOD MD Jun 28, 2020 21:05
[2020-06-28] MEDS ORDERED: TETANUS/DIPHTHERIA TOX ADULT 0.5 ML SYR IM ONE (21:15)
[2020-06-28] MEDS ORDERED: KEFLEX500 MG PO (21:18)
[2020-06-28] MEDS ORDERED: NAPROSYN500 MG PO (21:18)
== END 2020-06-28 21:45 | disposition home or self-care (01) ==
LOC: FSED 20:50
DX: S61.012A Laceration without foreign body of left thumb without damage to nail, initial encounter (principal); W26.8XXA Contact with other sharp object(s), not elsewhere classified, initial encounter; E78.5 Hyperlipidemia, unspecified
CPT/HCPCS: 12002; 90471; 90714; 99283; J2001